=== PATIENT | female | born 1985 | race Caucasian/White ===

== ENCOUNTER 2016-07-13 20:01 | Emergency (ER) | payer OTHER ==
[2016-07-13 20:14] VITALS: RESP 18
--- NOTE | 2016-07-13 21:20 | EDPHY ---
H & P Stated Complaint: fever, full body rash, ROBERSON, lethargy, upper abd tenderness - Personal History LMP (Females 10-55): 8-14 Days Ago Current Tetanus/Diphtheria Vaccine: Yes Current Tetanus Diphtheria and Acellular Pertussis (TDAP): Yes Tetanus Vaccine Date: MAY 2014 - Medical/Surgical History Hx Asthma: No Hx Chronic Respiratory Disease: No Hx Diabetes: No Hx Cardiac Disease: No Hx Renal Disease: No Hx Cirrhosis: No Hx Alcoholism: No Hx HIV/AIDS: No Hx Splenectomy or Spleen Trauma: No Other PMH: denies - Social History Smoking Status: Never smoked Time Seen by Provider: 07/13/16 20:27 HPI/ROS: CHIEF COMPLAINT: Flu-like symptoms post return trip from [facility] HISTORY OF PRESENT ILLNESS: 31-year-old immunocompetent female in the emergency department with her . They are complaining of flu-like symptoms after returning from a trip to [facility]. There and the country of [facility] between July 21 and July 29, while there they visited [facility] [place]. They did not take malaria prophylaxis and states that the mosquito numbers were quite low. On August 02 she and her started experiencing flu-like symptoms, lethargy, nausea with no vomiting, no appetite. No diarrhea. No melena. She developed a central rash which has now progressed peripherally. She followed up and consulted with Dr. Cecy Leija, infectious disease physician in [place] who obtained laboratory studies which are currently pending. The patient and her have an appointment with Dr. Leija tomorrow morning. She came to the emergency department because she has noticed left upper quadrant pain, new adenopathy, expansion of rash as well as nonproductive cough. Denies: Nuchal rigidity, urinary abnormality, other abdominal pain, back or flank pain, melena, hematochezia, gingival bleeding unusual bruising. The patient's children who traveled with them are not sick. Also note no unusual activity at home such as broad rodent off. REVIEW OF SYSTEMS: A ten point review of systems was performed and is negative with the exception of the items mentioned in the HPI PAST MEDICAL & SURGICAL HISTORY: No pertinent medical or surgical history SOCIAL HISTORY: PHYSICAL EXAM (Prior to examination, patient consented to physical exam, hands were washed and my usual and customary physical exam procedures followed) 1) GENERAL: Well-developed, well-nourished, alert and oriented. Appears nontoxic answering questions appropriately 2) HEAD: Normocephalic, atraumatic 3) HEENT: Pupils equal, round, reactive to light bilaterally. Sclera anicteric. Nasopharynx, oropharynx, 3 discrete palatal lesions seen. No gingival mucosal bleeding. Ears bilaterally with normal tympanic membranes. 4) NECK: Full range of motion, no meningeal signs. Positive cervical adenopathy 5) LUNGS: Clear auscultation bilaterally, no wheezes, no rhonchi, no retractions. 6) HEART: Regular rate and rhythm, no murmur, no heave, no gallop. 7) ABDOMEN: No guarding, no rebound, no focal tenderness, negative McBurney's, negative Flores's, negative Rovsing's, negative peritoneal sign. the patient was complaining left upper quadrant pain special attention paid to examination abdomen I am unable to appreciate splenomegaly or hepatomegaly and I am unable to elicit pain in the left upper or right upper quadrants. No ascites. 8) MUSCULOSKELETAL: Moving all extremities, no focal areas of tenderness, no obvious trauma. No peripheral edema or discoloration. 9) BACK: No CVA tenderness, no midline vertebral tenderness, no fluctuance, no step-off, no obvious trauma, no visual or palpable abnormality. 10) SKIN: Diffuse maculopapular rash primarily involving the trunk and proximal extremities. Sparing the plantar surfaces . No petechiae no ecchymosis no purpura 11) Psychiatric: Patient is oriented X 3, there is no agitation. DIFFERENTIAL DIAGNOSIS: in no particular order including but not limited to malaria, dengue, chikungunya, zika (Kisha,D [place]) Constitutional: Initial Vital Signs Temperature (C) 37.5 C 07/13/16 20:08 Heart Rate 103 H 07/13/16 20:08 Respiratory Rate 18 07/13/16 20:08 Blood Pressure 123/80 H 07/13/16 20:08 O2 Sat (%) 94 07/13/16 20:08 O2 Delivery Mode Room Air Allergies/Adverse Reactions: No Known Allergies Allergy (Verified 08/21/14 12:53) Home Medications: Medication Instructions Recorded NK [No Known Home Meds] 07/13/16 Medical Decision Making ED Course/Re-evaluation: 9:30 p.m.: Phone consultation with Dr. Cecy Leija, infectious disease, [place] recommended that CBC and chemistry be obtained on the patient and that the patient brings to appointment in the morning. Patient was re-evaluated with serial examinations. Answering questions appropriately. Recommended follow-up. Doubt hemorrhagic dengue hemorrhagic fever or dengue shock syndrome. I do not think that hospitalization is currently indicated.Care and management in consultation with secondary supervising physician Dr Morris . The patient's aftercare instructions indicates "dengue fever" and was explained the patient that we are not diagnosing with dengue fever, only that this was considered in the differential diagnosis and other options for aftercare instructions were not available (Nadeem Beard) Other Provider: The patient was evaluated and managed by the Physician President And Chief Operating Officer/ Nurse Practitioner. I discussed the patient's presentation and course with the midlevel provider with them and agree with the evaluation. My co-signature indicates that I have reviewed this chart and I agree with the findings and plan of care as documented. I am the secondary supervising physician. (Niyah Morris) - Data Points Laboratory Results: Laboratory Results 07/13/16 22:00 07/13/16 22:00 07/13/16 07/13/16 07/13/16 22:00 22:00 22:00 WBC 7.54 10^3/uL 10^3/uL (3.80-9.50) RBC 4.25 10^6/uL 10^6/uL (4.18-5.33) Hgb 12.7 g/dL g/dL (12.6-16.3) Hct 37.3 % L % (38.0-47.0) MCV 87.8 fL fL (81.5-99.8) MCH 29.9 pg pg (27.9-34.1) MCHC 34.0 g/dL g/dL (32.4-36.7) RDW 12.1 % % (11.5-15.2) Plt Count 279 10^3/uL 10^3/uL (150-400) MPV 10.2 fL fL (8.7-11.7) Neut % (Auto) 57.6 % % (39.3-74.2) Lymph % (Auto) 35.4 % % (15.0-45.0) Vance % (Auto) 5.3 % % (4.5-13.0) Eos % (Auto) 0.5 % L % (0.6-7.6) Baso % (Auto) 0.4 % % (0.3-1.7) Nucleat RBC Rel Count 0.0 % % (0.0-0.2) Absolute Neuts (auto) 4.34 10^3/uL 10^3/uL (1.70-6.50) Absolute Lymphs (auto) 2.67 10^3/uL 10^3/uL (1.00-3.00) Absolute Monos (auto) 0.40 10^3/uL 10^3/uL (0.30-0.80) Absolute Eos (auto) 0.04 10^3/uL 10^3/uL (0.03-0.40) Absolute Basos (auto) 0.03 10^3/uL 10^3/uL (0.02-0.10) Absolute Nucleated RBC 0.00 10^3/uL 10^3/uL (0-0.01) Immature Gran % 0.8 % % (0.0-1.1) Seg Neutrophils % 36 % % Band Neutrophils % 30 % % Lymphocytes % 32 % % Monocytes % 1 % % Eosinophils % 1 % % Immature Gran # 0.06 10^3/uL 10^3/uL (0.00-0.10) Absolute Seg Neuts 2.71 10^/uL 10^/uL (1.70-6.50) Absolute Band Neuts 2.26 10^3/uL H 10^3/uL (0.00-0.70) Absolute Lymphocytes 2.41 10^3/uL 10^3/uL (1.00-3.00) Absolute Monocytes 0.08 10^3/uL L 10^3/uL (0.30-0.80) Absolute Eosinophils 0.08 10^3/uL 10^3/uL (0.03-0.40) RBC/WBC/PLT Morphology NORMAL (NORMAL) Atypical Lymphocytes 1+ H Platelet Estimate ADEQUATE (ADEQ) Sodium 137 mEq/L mEq/L (134-144) Potassium 4.3 mEq/L mEq/L (3.5-5.2) Chloride 102 mEq/L mEq/L (97-110) Carbon Dioxide 23 mEq/l mEq/l (22-31) Anion Gap 12 mEq/L mEq/L (8-16) BUN 9 mg/dL mg/dL (7-23) Creatinine 0.6 mg/dL mg/dL (0.6-1.0) Estimated GFR > 60 Glucose 101 mg/dL H mg/dL (70-100) Calcium 8.8 mg/dL mg/dL (8.5-10.4) Total Bilirubin 0.6 mg/dL mg/dL (0.1-1.4) Conjugated Bilirubin 0.5 mg/dL mg/dL (0.0-0.5) Unconjugated Bilirubin 0.1 mg/dL mg/dL (0.0-1.1) AST 30 IU/L IU/L (14-46) ALT 103 IU/L H IU/L (9-52) Alkaline Phosphatase 117 IU/L IU/L (38-126) Total Protein 7.3 g/dL g/dL (6.3-8.2) Albumin 4.1 g/dL g/dL (3.5-5.0) Beta HCG, Qual NEGATIVE Monoscreen NEGATIVE (NEGATIVE) Departure - Departure Disposition: Home, Routine, Self-Care Clinical Impression: Flu-like symptoms Condition: Good Instructions: Oxycodone, Rapid Release (By mouth), Dengue Virus (ED) Additional Instructions: Avoid Tylenol containing products Referrals: Kimberly LEIJA [Non Staff Provider (MD)] - 1 day without fail (Keep your appointment with Dr. Leija Infectious Disease tomorrow)
[2016-07-13 22:32] LABS: BHCG-QUALITATIVE NEGATIVE
[2016-07-13 22:33] LABS: % IMMATURE GRANULYOCYTES 0.8 % (0.0-1.1); ABSOLUTE IMMATURE GRANULOCYTES 0.06 10^3/uL (0.00-0.10); ADD DIFF? NO; ADD MORPH? NO; ADD SCAN? YES; FRAGMENT RBC FLAG 0 (0-99); HEMATOCRIT 37.3 % (38.0-47.0); HEMOGLOBIN 12.7 g/dL (12.6-16.3); LEFT SHIFT FLG 20 (0-99); LIPEMIA HEMOLYSIS FLAG 90 (0-99); MEAN CELL HEMOGLOBIN 29.9 pg (27.9-34.1); MEAN CELL VOLUME 87.8 fL (81.5-99.8); MEAN PLATELET VOLUME 10.2 fL (8.7-11.7); MONO TEST NEGATIVE (NEGATIVE); PLATELET CLUMPS FLAG 10 (0-99); PLATELET COUNT 279 10^3/uL (150-400); RED BLOOD CELL COUNT 4.25 10^6/uL (4.18-5.33); RED CELL DISTRIBUTION WIDTH 12.1 % (11.5-15.2)
[2016-07-13 22:34] LABS: ATYPICAL LYMPHOCYTE FLAG 300 (0-99)
[2016-07-13 22:35] LABS: ALANINE AMINOTRANSFERASE 103 IU/L (9-52); ALBUMIN 4.1 g/dL (3.5-5.0); ALKALINE PHOSPHATASE 117 IU/L (38-126); ANION GAP 12 mEq/L (8-16); ASPARTATE AMINOTRANSFERASE 30 IU/L (14-46); BILIRUBIN,TOTAL 0.6 mg/dL (0.1-1.4); BILIRUBIN-CONJUGATED 0.5 mg/dL (0.0-0.5); BILIRUBIN-UNCONJUGATED 0.1 mg/dL (0.0-1.1); CALCIUM 8.8 mg/dL (8.5-10.4); CARBON DIOXIDE 23 mEq/l (22-31); CHLORIDE 102 mEq/L (97-110); CREATININE 0.6 mg/dL (0.6-1.0); GLOMERULAR FILTRATION RATE > 60; GLUCOSE 101 mg/dL (70-100); POTASSIUM 4.3 mEq/L (3.5-5.2); SODIUM 137 mEq/L (134-144); TOTAL PROTEIN 7.3 g/dL (6.3-8.2)
[2016-07-13 22:59] LABS: SCAN POSITIVE
[2016-07-13 23:05] LABS: PLATELET ESTIMATE ADEQUATE (ADEQ)
[2016-07-13 23:56] VITALS: BP 121/80; PULSE 90; TEMP 98.4; O2SAT 98
== END 2016-07-13 23:55 | disposition home or self-care (01) ==
DX: J11.1 Influenza due to unidentified influenza virus with other respiratory manifestations (principal)

== ENCOUNTER → 2016-11-02 | Outpatient (CLI) | payer OTHER | LOC: FIMAGING 13:24 | PROVIDERS: ATTEND Obstetrics & Gynecology | DX: O98.811 Other maternal infectious and parasitic diseases complicating pregnancy, first trimester (principal); B58.89 Toxoplasmosis with other organ involvement; Z20.828 Contact with and (suspected) exposure to other viral communicable diseases; Z87.59 Personal history of other complications of pregnancy, childbirth and the puerperium; Z3A.12 12 weeks gestation of pregnancy ==

== ENCOUNTER → 2016-12-28 | Outpatient (CLI) | payer OTHER | LOC: FIMAGING 09:59 | PROVIDERS: ATTEND Obstetrics & Gynecology | DX: O35.8XX0 Maternal care for other (suspected) fetal abnormality and damage, not applicable or unspecified (principal); Z3A.29 29 weeks gestation of pregnancy ==

== ENCOUNTER → 2017-03-08 | Outpatient (CLI) | payer OTHER | LOC: FIMAGING 09:07 | PROVIDERS: ATTEND Obstetrics & Gynecology | DX: O98.613 Protozoal diseases complicating pregnancy, third trimester (principal); B58.9 Toxoplasmosis, unspecified; Z3A.30 30 weeks gestation of pregnancy ==

== ENCOUNTER → 2017-04-12 | Outpatient (CLI) | payer OTHER | LOC: FIMAGING 08:55 | PROVIDERS: ATTEND Obstetrics & Gynecology | DX: Z03.79 Encounter for other suspected maternal and fetal conditions ruled out (principal); Z3A.35 35 weeks gestation of pregnancy; Z86.19 Personal history of other infectious and parasitic diseases ==